=== PATIENT | male | born 1960 | race African-American/Black ===

== ENCOUNTER 2021-03-16 08:58 | Outpatient (CLI) | payer OTHER ==
[2021-03-16] MEDS ORDERED: IPRATROPIUM/ALBUTEROL SULFATE 3 ML AMPUL.NEB IH ONE (12:00)
--- NOTE | 2021-04-10 00:03 | Pulmonary Function Test ---
DATE OF VISIT: 03/16/2021 PULMONARY FUNCTION TEST SPIROMETRY: FVC 1.91, which is 52% of the predicted and FEV1 is 0.78, which is 28% of the predicted. FEV1/FVC ratio is 41 and flow volume loop 0.27 liters per second, which is 11% of the predicted. The patient's DLCO 1.67 liters, which is 55% of predicted. Inspiratory capacity 1.18, which is 42% of the predicted. The patient's FRC 1.85 liters, which is 61% of the predicted. MVV is 26% of the predicted, tidal volume 0.35, which is 80.35 liters. IMPRESSION: Severe obstructive ventilatory impairment as evidenced by decrease in FEV1 or FVC, decrease in DLCO. Restrictive ventilatory impairment cannot be ruled out based on this because we need TLC on this patient. Post-bronchodilators, there is significant improvement in FVC, FEV1. TID: [id number] RECEIPT: [id number] [facility]/JONNY
== END 2021-03-16 08:59 | disposition home or self-care (01) ==
LOC: PF 08:58 → EDSTATUS 09:02
PROVIDERS: ATTEND Family Medicine
DX: J44.9 Chronic obstructive pulmonary disease, unspecified (principal)
CPT/HCPCS: 94060; 94640; 94727; 94729

== ENCOUNTER 2021-08-04 09:42 | Outpatient (CLI) | payer OTHER ==
--- NOTE | 2021-08-04 11:44 | XRay Report ---
CHEST 2 VIEWS INDICATION: COPD. COMPARISON: None. FINDINGS: Support devices: None. Heart: Within normal limits. Lungs/Pleura: No acute air space or interstitial disease. No significant pleural effusion. IMPRESSION: No acute findings. Signer Name: Chau Henao MD Signed: 08/04/2021 11:40 AM Workstation Name: [id number]
== END 2021-08-04 09:43 | disposition home or self-care (01) ==
LOC: XRAY 09:42
PROVIDERS: ATTEND Family Medicine
DX: J44.9 Chronic obstructive pulmonary disease, unspecified (principal); E11.9 Type 2 diabetes mellitus without complications
CPT/HCPCS: 71046

== ENCOUNTER 2021-12-16 10:44 | Outpatient (CLI) | payer OTHER ==
[2021-12-16 11:40] LABS: Hematocrit 46.2 % (35.5-45.6); Hemoglobin 15.2 gm/dl (11.8-15.2); Mean Corpuscular HGB Conc 33 % (32-34); Mean Corpuscular Volume 87 fl (84-94); Platelet Count 277 K/mm3 (140-440); Red Blood Count 5.31 M/mm3 (3.65-5.03); Red Cell Distribution Width 14.9 % (13.2-15.2)
[2021-12-16 11:54] LABS: ABG Base Excess 0.6 mmol/L (-2.0-3.0); ABG HCO3 25.8 mmol/L (20.0-26.0); ABG Methemoglobin 0.5 % (0.0-1.5); ABG Oxygen Saturation 95.4 % (95.0-99.0); ABG PCO2 43.5 mm Hg; ABG PH 7.391 pH Units (7.350-7.450); ABG PO2 70.6 mm Hg (80.0-90.0)
[2021-12-17 01:53] LABS: BUN/Creatinine Ratio 18; Blood Urea Nitrogen 14 mg/dL (9-20); Calcium 9.9 mg/dL (8.4-10.2); Hemolysis Index 4
[2021-12-17 03:10] LABS: Alanine Aminotransferase 57 units/L (7-56); Chol/HDL Ratio 1.73 %; HDL Cholesterol 64 mg/dL (40-59); LDL Cholesterol,Direct 38 mg/dL (50-130)
== END 2021-12-16 10:45 | disposition home or self-care (01) ==
LOC: LAB 10:44
PROVIDERS: ATTEND Internal Medicine
DX: J45.909 Unspecified asthma, uncomplicated (principal); I10 Essential (primary) hypertension; E11.9 Type 2 diabetes mellitus without complications; E78.00 Pure hypercholesterolemia, unspecified; Z68.28 Body mass index [BMI] 28.0-28.9, adult
CPT/HCPCS: 36415; 36600; 80053; 80061; 82785; 82803; 84436; 84443; 85027